=== PATIENT | female | born 1940 | race Hispanic/Latino ===

== ENCOUNTER 2021-07-18 19:31 | Inpatient (IN) | payer MEDICARE ==
[~2021-07-18] VITALS: Ht 154.9 cm; Wt 56.7 kg
[2021-07-18 20:26] LABS: APPEARANCE,URINE Clear (CLEAR); BILIRUBIN,URINE Negative (NEGATIVE); COLOR,URINE Yellow (YELLOW); GLUCOSE, URINE (UA) Negative (NEGATIVE); KETONES,URINE Negative (NEGATIVE); LEUKOCYTE ESTERASE ,URINE Trace (NEGATIVE); NITRATE,URINE Negative (NEGATIVE); OCCULT BLOOD,URINE Small (NEGATIVE); PROTEIN,URINE POS 2+ mg/dL (NEGATIVE)
[2021-07-18] MEDS ORDERED: KETOROLAC 15MG/ML VIAL (15MG/ML) IV ONE (20:30)
[2021-07-18] MEDS ORDERED: ONDANSETRON 4MG INJ IVP ONE (20:30)
[2021-07-18] MEDS ORDERED: 0.9%NACL 1000ML 1,000 ML IV ONE (20:30)
[2021-07-18] MEDS ORDERED: ACETAMINOPHEN 325 MG TAB PO ONE (20:30)
[2021-07-18 20:33] LABS: BACTERIA,URINE Few /HPF (None Seen); MUCUS,URINE Few LPF (None Seen); SQUAMOUS EPITHELIAL CELL,UR Few /HPF (0-2)
[2021-07-18 20:52] LABS: BASOPHILS % (AUTO) 0.4 % (0.0-5.0); EOSINOPHILS % (AUTO) 1.2 % (0.0-8.0); HEMATOCRIT 34.2 % (36-48); LYMPHOCYTES % (AUTO) 6.7 % (21.0-51.0); MEAN CORPUSCULAR HEMOGLOBIN 23.9 pg (27.0-33.0); MONOCYTES % (AUTO) 2.3 % (3.0-13.0); NEUTROPHILS % (AUTO) 89.1 % (40.0-77.0); PLATELET COUNT (AUTO) 163 K/uL (130-400); RED BLOOD CELL COUNT(AUTO) 4.44 MIL/uL (4.00-5.50); RED CELL DISTRIBUTION WIDTH 16.6 % (11.0-15.5); WHITE BLOOD COUNT (AUTO) 7.3 K/uL (4.8-10.8)
[2021-07-18 21:07] LABS: CREATININE 0.8 mg/dL (0.5-1.5); POTASSIUM 3.7 mmol/L (3.5-5.1)
[2021-07-18 21:12] LABS: ALBUMIN 2.9 g/dL (3.5-5.0); BILIRUBIN,TOTAL 1.5 mg/dL (0.2-1.0); TOTAL PROTEIN, SERUM 7.3 g/dL (6.0-8.3)
[2021-07-19] MEDS ORDERED: ZOSYN 3.375GM+NS 50ML 3.38 GM in 0.9%NACL 50ML 50 ML IV SCH (00:30)
[2021-07-19] MEDS ORDERED: ZOSYN 3.375GM+NS 50ML 50 ML ONE (00:31)
[2021-07-19] MEDS ORDERED: ONDANSETRON 4MG INJ IV PRN (03:00)
[2021-07-19] MEDS ORDERED: ZOSYN 3.375GM+NS 50ML 50 ML IV SCH ×2 (03:00→12:00)
[2021-07-19] MEDS ORDERED: HYDRALAZINE 20MG/ML VIAL IV PRN (03:00)
[2021-07-19] MEDS ORDERED: ACETAMINOPHEN 325 MG TAB PO PRN (03:30)
[2021-07-19] MEDS: LACTATED RINGERS 1000ML 1,000 ML IV SCH ×3 (03:34→21:09)
[2021-07-19 03:55] LABS: INR 1.11 (0.85-1.15)
[2021-07-19 03:56] LABS: PARTIAL THROMBOPLASTIN TIME 29.3 SEC (26.3-35.5)
[2021-07-19 05:28] LABS: MAGNESIUM 1.7 mg/dL (1.80-2.40); PHOSPHORUS 4.2 mg/dL (2.5-4.9)
[2021-07-19] MEDS: FAMOTIDINE 20MG VIAL IV SCH (08:15)
[2021-07-19] MEDS ORDERED: ENOXAPARIN SODIUM 30 MG/0.3 ML SQ SCH (09:00)
[2021-07-19] MEDS ORDERED: 0.9%NACL 50ML 50 ML IV ONE (09:30)
[2021-07-19] MEDS: ZOSYN 3.375GM+NS 50ML 50 ML IV SCH ×2 (09:38→17:33)
[2021-07-19 09:57] LABS: CREATININE 1.2 mg/dL (0.5-1.5); POTASSIUM 4.1 mmol/L (3.5-5.1)
[2021-07-19 10:02] LABS: ALBUMIN 2.2 g/dL (3.5-5.0); BILIRUBIN,TOTAL 2.3 mg/dL (0.2-1.0); TOTAL PROTEIN, SERUM 5.9 g/dL (6.0-8.3)
[2021-07-19] MEDS ORDERED: DULO30CA52 PO (10:35)
[2021-07-19] MEDS ORDERED: LOSA50TA64 PO (10:35)
[2021-07-19] MEDS ORDERED: ATOR10 PO (10:35)
[2021-07-19] MEDS ORDERED: VITAD50000 PO (10:35)
[2021-07-19 16:40] VITALS: BP 152/73
[2021-07-19 20:24] VITALS: BP 134/53
[2021-07-20] VITALS: BP 138/64
[2021-07-20] MEDS: ZOSYN 3.375GM+NS 50ML 50 ML IV SCH ×3 (00:36→17:43)
[2021-07-20 03:50] LABS: BASOPHILS % (AUTO) 0.7 % (0.0-5.0); HEMATOCRIT 31.1 % (36-48); LYMPHOCYTES % (AUTO) 11.2 % (21.0-51.0); MEAN CORPUSCULAR HEMOGLOBIN 23.4 pg (27.0-33.0); MEAN CORPUSCULAR HGB CONC 29.9 g/dL (32.0-36.0); MEAN CORPUSCULAR VOLUME 78.1 fL (79-99); MONOCYTES % (AUTO) 5.8 % (3.0-13.0); NEUTROPHILS % (AUTO) 79.8 % (40.0-77.0); PLATELET COUNT (AUTO) 146 K/uL (130-400); RED BLOOD CELL COUNT(AUTO) 3.98 MIL/uL (4.00-5.50); RED CELL DISTRIBUTION WIDTH 17.3 % (11.0-15.5); WHITE BLOOD COUNT (AUTO) 10.5 K/uL (4.8-10.8)
[2021-07-20 04:00] VITALS: BP 113/56
[2021-07-20 04:01] LABS: POTASSIUM 3.9 mmol/L (3.5-5.1)
[2021-07-20] MEDS: LACTATED RINGERS 1000ML 1,000 ML IV SCH ×2 (05:26→17:43)
[2021-07-20 06:43] LABS: BILIRUBIN,DIRECT 1.7 mg/dL (0.0-0.3); BILIRUBIN,TOTAL 2.4 mg/dL (0.2-1.0); TOTAL PROTEIN, SERUM 5.7 g/dL (6.0-8.3)
[2021-07-20 08:00] VITALS: BP 122/55
[2021-07-20] MEDS: FAMOTIDINE 20MG VIAL IV SCH (11:34)
[2021-07-20 11:36] VITALS: BP 134/59
[2021-07-20 16:00] VITALS: BP 111/45
[2021-07-20 23:07] VITALS: BP 125/48
[2021-07-21] MEDS: ZOSYN 3.375GM+NS 50ML 50 ML IV SCH ×3 (01:12→16:04)
[2021-07-21 02:13] VITALS: BP 121/50
[2021-07-21] MEDS: LACTATED RINGERS 1000ML 1,000 ML IV SCH ×4 (03:04→23:14)
[2021-07-21 04:03] LABS: BASOPHILS % (AUTO) 0.9 % (0.0-5.0); EOSINOPHILS % (AUTO) 3.9 % (0.0-8.0); HEMATOCRIT 32.7 % (36-48); LYMPHOCYTES % (AUTO) 19.8 % (21.0-51.0); MEAN CORPUSCULAR HEMOGLOBIN 23.7 pg (27.0-33.0); MONOCYTES % (AUTO) 9.7 % (3.0-13.0); NEUTROPHILS % (AUTO) 65.4 % (40.0-77.0); PLATELET COUNT (AUTO) 174 K/uL (130-400); RED BLOOD CELL COUNT(AUTO) 4.14 MIL/uL (4.00-5.50); RED CELL DISTRIBUTION WIDTH 17.6 % (11.0-15.5); WHITE BLOOD COUNT (AUTO) 6.9 K/uL (4.8-10.8)
[2021-07-21 04:10] LABS: INR 1.13 (0.85-1.15); PROTHROMBIN TIME 12.2 SEC (9.6-11.6)
[2021-07-21 04:35] LABS: ALBUMIN 1.9 g/dL (3.5-5.0); BILIRUBIN,TOTAL 1.4 mg/dL (0.2-1.0); CREATININE 1.2 mg/dL (0.5-1.5); POTASSIUM 4.2 mmol/L (3.5-5.1); TOTAL PROTEIN, SERUM 5.8 g/dL (6.0-8.3)
[2021-07-21 05:32] VITALS: BP 137/62
[2021-07-21 08:41] VITALS: BP 155/65
[2021-07-21] MEDS: FAMOTIDINE 20MG VIAL IV SCH (10:28)
[2021-07-21 13:39] VITALS: BP 160/78
[2021-07-21 16:33] VITALS: BP 154/64
[2021-07-21 20:22] VITALS: BP 175/77
[2021-07-22] VITALS (48 sets, daily range): BP systolic 108–185; BP diastolic 44–91
[2021-07-22] MEDS: ZOSYN 3.375GM+NS 50ML 50 ML IV SCH ×3 (02:54→17:23)
[2021-07-22] MEDS ORDERED: IOHEXOL-350 50ML VIAL IV ONE (07:31)
[2021-07-22] MEDS ORDERED: PROPOFOL 10 MG/ML 20ML VIAL IV ONE ×2 (08:16→14:29)
[2021-07-22] MEDS: LACTATED RINGERS 1000ML 1,000 ML IV SCH ×3 (09:09→18:11)
[2021-07-22] MEDS: FAMOTIDINE 20MG VIAL IV SCH (09:51)
[2021-07-22] MEDS ORDERED: LIDOCAINE PF 100MG/5ML (2%) SYRINGE 5ML ONE (14:28)
[2021-07-22] MEDS ORDERED: ONDANSETRON 4MG INJ ONE (14:29)
[2021-07-22] MEDS ORDERED: ROCURONIUM 10MG/1ML SYR 10 MG/ML ML ONE (14:29)
[2021-07-22] MEDS ORDERED: FENTANYL CITRATE PF 50 MCG/1 ML 2ML VIAL ONE (14:30)
[2021-07-22] MEDS ORDERED: LIDOCAINE HCL/EPINEPHRINE 30 ML VIAL IJ ONE (14:40)
[2021-07-22] MEDS ORDERED: CEFAZOLIN SODIUM 1 GM VIAL ONE (14:40)
[2021-07-22] MEDS ORDERED: BUPIVACAINE/PF 0.25% 30ML VIAL IJ ONE (14:40)
[2021-07-22] MEDS ORDERED: PHENYLEPHRINE HCL 10 MG/ML 1ML VIAL IV ONE (14:59)
[2021-07-22] MEDS ORDERED: NEOSTIGMINE 5MG/5ML SYR IV ONE (15:49)
[2021-07-22] MEDS ORDERED: GLYCOPYRROLATE 1 MG/5 ML SYRINGE ONE (15:49)
[2021-07-22] MEDS ORDERED: SUGAMMADEX SODIUM 200 MG/2 ML VIAL IV ONE (16:06)
[2021-07-22] MEDS ORDERED: MEPERIDINE-PF 25 MG/ML SYG ONE ×2 (16:26→16:36)
[2021-07-22] MEDS: MORPHINE 2 MG SYG IV PRN (18:11)
[2021-07-23] VITALS (8 sets, daily range): BP systolic 97–118; BP diastolic 38–47
[2021-07-23] MEDS: ZOSYN 3.375GM+NS 50ML 50 ML IV SCH ×3 (00:55→16:58)
[2021-07-23 03:40] LABS: HEMATOCRIT 35.4 % (36-48); MEAN CORPUSCULAR HEMOGLOBIN 23.7 pg (27.0-33.0); MEAN CORPUSCULAR HGB CONC 29.7 g/dL (32.0-36.0); MEAN CORPUSCULAR VOLUME 79.9 fL (79-99); RED BLOOD CELL COUNT(AUTO) 4.43 MIL/uL (4.00-5.50); RED CELL DISTRIBUTION WIDTH 17.9 % (11.0-15.5); WHITE BLOOD COUNT (AUTO) 14.6 K/uL (4.8-10.8)
[2021-07-23 03:58] LABS: BILIRUBIN,DIRECT 0.6 mg/dL (0.0-0.3); BILIRUBIN,TOTAL 0.9 mg/dL (0.2-1.0); POTASSIUM 4.5 mmol/L (3.5-5.1); TOTAL PROTEIN, SERUM 6.1 g/dL (6.0-8.3)
[2021-07-23] MEDS: LACTATED RINGERS 1000ML 1,000 ML IV SCH ×2 (05:29→15:43)
[2021-07-23] MEDS: FAMOTIDINE 20MG VIAL IV SCH (08:20)
[2021-07-23] MEDS: MORPHINE 2 MG SYG IV PRN (08:22)
[2021-07-23] MEDS: ACETAMINOPHEN 325 MG TAB PO SCH ×4 (11:30→23:59)
[2021-07-24 00:50] VITALS: BP 103/34
[2021-07-24] MEDS: LACTATED RINGERS 1000ML 1,000 ML IV SCH (01:20)
[2021-07-24] MEDS: ZOSYN 3.375GM+NS 50ML 50 ML IV SCH ×3 (01:24→17:35)
[2021-07-24 04:47] VITALS: BP 109/42
[2021-07-24] MEDS: ACETAMINOPHEN 325 MG TAB PO SCH ×2 (05:30→11:59)
[2021-07-24 08:59] VITALS: BP 105/47
[2021-07-24] MEDS ORDERED: HYDROMORPHONE 1 MG INJ IVP PRN (09:30)
[2021-07-24] MEDS ORDERED: HYDROMORPHONE 0.5 MG SYG (0.5MG/0.5ML) IVP PRN (09:30)
[2021-07-24 09:35] LABS: BASOPHILS % (AUTO) 0.4 % (0.0-5.0); EOSINOPHILS % (AUTO) 0.4 % (0.0-8.0); LYMPHOCYTES % (AUTO) 11.3 % (21.0-51.0); MEAN CORPUSCULAR HEMOGLOBIN 23.5 pg (27.0-33.0); MEAN CORPUSCULAR HGB CONC 28.8 g/dL (32.0-36.0); MEAN CORPUSCULAR VOLUME 81.5 fL (79-99); MONOCYTES % (AUTO) 8.3 % (3.0-13.0); PLATELET COUNT (AUTO) 176 K/uL (130-400); RED BLOOD CELL COUNT(AUTO) 4.17 MIL/uL (4.00-5.50); WHITE BLOOD COUNT (AUTO) 13.4 K/uL (4.8-10.8)
[2021-07-24 09:47] LABS: ALBUMIN 1.9 g/dL (3.5-5.0); CREATININE 2.3 mg/dL (0.5-1.5); PHOSPHORUS 5.9 mg/dL (2.5-4.9); POTASSIUM 4.5 mmol/L (3.5-5.1)
[2021-07-24 10:13] LABS: BILIRUBIN,TOTAL 0.9 mg/dL (0.2-1.0); CRP QUANTITATIVE 161.2 mg/L (0.00-9.0); MAGNESIUM 1.7 mg/dL (1.80-2.40)
[2021-07-24 10:20] LABS: % IRON SATURATION 8.7 % (22-44)
[2021-07-24 10:52] LABS: ERYTHROCYTE SEDIMENTATION RATE 45 MM/HR (0-30)
[2021-07-24] MEDS: FUROSEMIDE 20MG VIAL IV SCH (11:59)
[2021-07-24 12:40] VITALS: BP 107/50
[2021-07-24 16:59] VITALS: BP 138/53
[2021-07-24] MEDS ORDERED: PHARMACY COMMUNICATION MISC SCH (18:00)
[2021-07-24] MEDS ORDERED: ACETAMINOPHEN 650 MG/20.3 ML UDCUP PO PRN (18:00)
[2021-07-24] MEDS: ACETAMINOPHEN 650 MG/20.3 ML UDCUP PO SCH ×2 (18:30→22:34)
[2021-07-24 23:26] VITALS: BP 135/53
[2021-07-25] MEDS: ZOSYN 3.375GM+NS 50ML 50 ML IV SCH (02:23)
[2021-07-25 04:50] VITALS: BP 114/56
[2021-07-25] MEDS: ACETAMINOPHEN 650 MG/20.3 ML UDCUP PO SCH ×3 (06:22→18:03)
[2021-07-25 07:58] VITALS: BP 120/50
[2021-07-25] MEDS: FUROSEMIDE 20MG VIAL IV SCH (10:00)
[2021-07-25] MEDS ORDERED: IRON SUCROSE COMPLEX 500 MG in 0.9% NACL 250ML 250 ML IV SCH (10:30)
[2021-07-25 10:55] LABS: BASOPHILS % (AUTO) 0.5 % (0.0-5.0); EOSINOPHILS % (AUTO) 1.8 % (0.0-8.0); HEMATOCRIT 33.3 % (36-48); LYMPHOCYTES % (AUTO) 17.9 % (21.0-51.0); MEAN CORPUSCULAR HEMOGLOBIN 23.6 pg (27.0-33.0); MEAN CORPUSCULAR VOLUME 78.5 fL (79-99); MONOCYTES % (AUTO) 8.8 % (3.0-13.0); NEUTROPHILS % (AUTO) 70.3 % (40.0-77.0); PLATELET COUNT (AUTO) 193 K/uL (130-400); RED BLOOD CELL COUNT(AUTO) 4.24 MIL/uL (4.00-5.50); RED CELL DISTRIBUTION WIDTH 18.1 % (11.0-15.5); WHITE BLOOD COUNT (AUTO) 10.1 K/uL (4.8-10.8)
[2021-07-25 11:09] LABS: CREATININE 2.6 mg/dL (0.5-1.5); POTASSIUM 4.2 mmol/L (3.5-5.1)
[2021-07-25 11:14] LABS: ALBUMIN 1.7 g/dL (3.5-5.0); BILIRUBIN,TOTAL 0.7 mg/dL (0.2-1.0)
[2021-07-25 11:22] LABS: CRP QUANTITATIVE 158.9 mg/L (0.00-9.0)
[2021-07-25 12:00] VITALS: BP 134/61
[2021-07-25] MEDS ORDERED: ZOSYN 3.375GM+NS 50ML 50 ML IV SCH (13:00)
[2021-07-25 16:00] VITALS: BP 158/70
== END 2021-07-25 18:05 | DRG 417 ==
LOC: EDH 19:31 → EDHIP 07-19 02:47 → 4DH 07-19 16:30
PROVIDERS: ADMIT Internal Medicine; ATTEND Internal Medicine
PROC: 0DJ08ZZ Inspection of Upper Intestinal Tract, Via Natural or Artificial Opening Endoscopic (ICD-10-PCS; 2021-07-22)
PROC: 0FT44ZZ Resection of Gallbladder, Percutaneous Endoscopic Approach (ICD-10-PCS; principal; 2021-07-22 15:06)
DX: K80.00 Calculus of gallbladder with acute cholecystitis without obstruction (principal); K85.10 Biliary acute pancreatitis without necrosis or infection; R18.8 Other ascites; R78.81 Bacteremia; N39.0 Urinary tract infection, site not specified; Z20.822 Contact with and (suspected) exposure to COVID-19; F41.9 Anxiety disorder, unspecified; F32.A Depression, unspecified; I10 Essential (primary) hypertension; N28.1 Cyst of kidney, acquired; F03.90 Unspecified dementia, unspecified severity, without behavioral disturbance, psychotic disturbance, mood disturbance, and anxiety; E78.5 Hyperlipidemia, unspecified; K82.8 Other specified diseases of gallbladder; K86.9 Disease of pancreas, unspecified; K83.8 Other specified diseases of biliary tract; K44.9 Diaphragmatic hernia without obstruction or gangrene; Z60.2 Problems related to living alone; R79.89 Other specified abnormal findings of blood chemistry; B96.1 Klebsiella pneumoniae [K. pneumoniae] as the cause of diseases classified elsewhere; K31.89 Other diseases of stomach and duodenum; B96.6 Bacteroides fragilis [B. fragilis] as the cause of diseases classified elsewhere; Z51.5 Encounter for palliative care
CPT/HCPCS: 36415; 43237; 71045; 74176; 76705; 80048; 80053; 80061; 80076; 81001; 82150; 82607; 82728; 82746; 82948; 83540; 83550; 83605; 83690; 83735; 84100; 84145; 84484; 85025; 85027; 85045; 85610; 85651; 85730; 86140; 86850; 86900; 86901; 87040; 87077; 87088; 87186; 87635; 87804; 88304; 92610; 93005; 97039; A4606; C9803; G0378; J0690; J1756; J1885; J1940; J2001; J2175; J2370; J2405; J2543; J2704; J2710; J3010; J3490; J7030; J7050; J7120; Q9967